=== PATIENT | male | born 1960 | race Caucasian/White ===

== ENCOUNTER 2020-11-11 14:20 | Emergency (ER) | payer BC, MEDICAID ==
[~2020-11-11] VITALS: Ht 162.6 cm; Wt 65.0 kg
[~2020-11-11 14:20] MED LIST: CYCL-1 PO; FERR325T28 PO; FLO0.4C PO; LEVO500T89 PO; LOP12.5T PO; NORT50CA PO; OXYC18CA PO; OXYC1TAB17 PO; PANT40TA54 PO; VENL150C58 PO
[2020-11-11 20:04] VITALS: BP 134/94
== END 2020-11-12 20:00 | disposition left against medical advice (07) ==
LOC: ER 15:48
DX: Z53.21 Procedure and treatment not carried out due to patient leaving prior to being seen by health care provider (principal)

== ENCOUNTER 2020-11-13 03:22 | Emergency (ER) | payer BC, MEDICAID ==
[~2020-11-13 03:22] MED LIST changes: -LEVO500T89 PO
[2020-11-13 03:32] VITALS: BP 153/87
[2020-11-13] MEDS ORDERED: ketorolac trometh. 30mg/ml inj. IV ONE (04:00)
[2020-11-13 04:29] LABS: MONOCYTES # (AUTO) 1.1 X10'3 (0-0.9)
[2020-11-13 04:30] LABS: BASOPHILS % (AUTO) 0.2 % (0-1); EOSINOPHILS % (AUTO) 0.2 % (0-6); HEMATOCRIT 29.8 % (42.0-52.0); HEMOGLOBIN 9.5 g/dl (14.0-17.9); LYMPHOCYTES # (AUTO) 1.2 X10'3 (1.1-4.8); LYMPHOCYTES % (AUTO) 9.2 % (21-51); MEAN CORPUSCULAR HEMOGLOBIN 24.6 PG (27.0-31.0); MEAN CORPUSCULAR VOLUME 76.9 FL (78-98); NEUTROPHILS # (AUTO) 11.2 X10'3 (1.8-7.7); NEUTROPHILS % (AUTO) 82.4 % (42-75); PLATELET COUNT 713 X10'3 (140-440); RED BLOOD COUNT 3.88 X10'6 (4.70-6.10); RED CELL DISTRIBUTION WIDTH 17.1 % (11.5-14.5); WHITE BLOOD COUNT 13.6 X10'3 (4.5-11.0)
--- NOTE | 2020-11-13 04:43 | NUR ---
came in without a catheter collection bag,leaking urine on the floor,replaced and collected urine from the cath bag.
[2020-11-13 04:45] LABS: ALANINE AMINOTRANSFERASE 18 U/L (12-78); ALBUMIN 2.8 G/DL (3.4-5.0); ALBUMIN/GLOBULIN RATIO 0.6 (1.1-1.5); ALKALINE PHOSPHATASE 105 IU/L (46-116); ANION GAP 10 (8-16); ASPARTATE AMINO TRANSFERASE 32 U/L (10-37); BILIRUBIN,TOTAL 0.2 MG/DL (0.1-1.0); BLOOD UREA NITROGEN 24 MG/DL (7-18); BUN/CREATININE RATIO 27.6 (5.4-32.0); CALCIUM 9.1 MG/DL (8.5-10.1); CHLORIDE 98 MMOL/L (99-107); CREATININE 0.87 MG/DL (0.60-1.10); GLUCOSE 96 MG/DL (70-104); POTASSIUM 4.1 MMOL/L (3.5-5.1); SODIUM 138 MMOL/L (135-145); TOTAL PROTEIN 7.4 G/DL (6.4-8.2); eGFR 89 ML/MIN
[2020-11-13 04:59] LABS: PLATELET ESTIMATE INCREASED
[2020-11-13 05:00] LABS: ANISOCYTOSIS 1+; MICROCYTOSIS 1+
[2020-11-13 05:18] LABS: CLARITY,URINE CLEAR (Clear); COLOR,URINE YELLOW (Yellow); GLUCOSE, URINE NEGATIVE (Neg); KETONES,URINE NEGATIVE (Neg); LEUKOCYTE ESTERASE ,URINE SMALL (Neg); NITRITES, URINE NEGATIVE (Neg); OCCULT BLOOD,URINE MODERATE (Neg); PROTEIN,URINE NEGATIVE (Neg); UROBILINOGEN,URINE 0.2 E.U/dL (0.2-1.0)
[2020-11-13 05:19] LABS: UA COLLECTION TYPE CLN CATCH MIDSTREAM
[2020-11-13 05:22] LABS: BACTERIA,URINE NONE SEEN /HPF (Neg); RBC,URINE 50-100 /HPF (0-2); SQUAMOUS EPITHELIAL CELL,UR FEW /LPF (FEW); WBC,URINE 0-4 /HPF (0-4)
[2020-11-13] MEDS ORDERED: morphine 2 MG/ML inj. syringe IV ONE (05:35)
== END 2020-11-13 06:29 | disposition home or self-care (01) ==
LOC: ER 03:22
DX: K59.00 Constipation, unspecified (principal); R10.84 Generalized abdominal pain; I10 Essential (primary) hypertension; Z86.69 Personal history of other diseases of the nervous system and sense organs; Z98.890 Other specified postprocedural states; Z88.0 Allergy status to penicillin; Z91.030 Bee allergy status; Z79.899 Other long term (current) drug therapy
CPT/HCPCS: 36415; 74176; 80053; 81001; 85008; 85025; 96374; 96375; 99284; J1885; J2270